=== PATIENT | male | born 2000 | race Hispanic/Latino ===

== ENCOUNTER 2020-06-20 23:08 | Emergency (ER) | payer OTHER ==
[2020-06-20] MEDS ORDERED: METOCLOPRAMIDE 10 MG/2 ML VIAL ONE (23:47)
[2020-06-20] MEDS ORDERED: DiphenhydrAMINE HCL 50 MG/ML VIAL ONE (23:48)
[2020-06-20] MEDS ORDERED: KETOROLAC TROMETHAMINE 30MG/ML ONE (23:48)
[2020-06-20] MEDS ORDERED: SODIUM CHLORIDE 0.9% 1000ML 1,000 ML IV ONE (23:49)
== END 2020-06-21 00:48 | disposition home or self-care (01) ==
LOC: EDH 23:08
DX: R51.9 Headache, unspecified (principal); I10 Essential (primary) hypertension; J45.909 Unspecified asthma, uncomplicated
CPT/HCPCS: 96361; 96374; 96375; 99284; J1200; J1885; J2765; J7030